=== PATIENT | female | born 1965 | race American Indian/Alaskan Native ===

== ENCOUNTER 2016-10-15 11:00 | Emergency (ER) | payer BC ==
[2016-10-15 11:09] VITALS: BP 152/99
--- NOTE | 2016-10-15 11:36 | Emergency Department Report ---
HPI - General Chief Complaint: Extremity Injury, Lower Time Seen by Provider: 10/15/16 11:24 - HPI HPI: 51-year-old female presents today with left middle finger injury 2 days ago. Patient states that she was walking her dog ran, causing the leash to get stuck to her left middle finger. Tetanus status unknown. Describes her pain as a 4 out of 10 aching, throbbing pain that comes and goes. Denies trying any medication for pain relief. Patient states that she has had colonoscopy scheduled for Wednesday and does not want anything to interfere with that. Denies numbness, weakness, paresthesias. Denies fever, chills, nausea, vomiting, chest pain, shortness of breath, abdominal pain. ED Past Medical Hx - Past Medical History Previous Medical History?: Yes Hx Psychiatric Treatment: (depression) Additional medical history: high cholesterol, hypothyroidism - Surgical History Past Surgical History?: No - Social History Smoking Status: Never Smoker Substance Use Type: Prescribed - Medications Home Medications: Home Medications Medication Instructions Recorded Confirmed Last Taken Type Cyclobenzaprine [Flexeril 10mg] 10 mg PO TID PRN #30 tablet 05/29/14 Unknown Rx Naproxen [Naprosyn TAB] 500 mg PO BID #30 tablet 05/29/14 Unknown Rx HYDROcodone/APAP 5-325 [[place] 1 each PO Q6HR PRN #14 tablet 10/15/16 Unknown Rx 5/325] Ibuprofen [Motrin 800 MG tab] 800 mg PO Q8HR PRN #30 tablet 10/15/16 Unknown Rx ED Review of Systems ROS: Stated complaint: LT HAND MIDDLE FINGER INJURY Other details as noted in HPI Constitutional: denies: chills, fever, malaise Eyes: denies: eye pain ENT: denies: ear pain, throat pain, congestion Respiratory: denies: cough, shortness of breath, wheezing Cardiovascular: denies: chest pain, palpitations Endocrine: no symptoms reported Gastrointestinal: denies: abdominal pain, nausea, vomiting Musculoskeletal: joint swelling, arthralgia Neurological: denies: headache, weakness, numbness, paresthesias Physical Exam - Physical Exam Vital Signs: Vital Signs 10/15/16 11:05 Temperature 98.1 F Pulse Rate 81 Respiratory 18 Rate Blood Pressure 152/99 O2 Sat by Pulse 99 Oximetry Physical Exam: GENERAL: The patient is well-developed and well-nourished. Patient is in NAD. HEAD: Normocephalic. Atraumatic. CHEST/LUNGS: Clear to auscultation throughout. HEART/CARDIOVASCULAR: Regular rate and rhythm. ABDOMEN: Abdomen is soft, nontender. No guarding or rebound tenderness. LEFT FINGER: Limited left middle finger ROM. Tenderness to palpation of DIP joint of left middle finger. Positive for edema and bruising. Peripheral pulses intact. Capillary refill less than 2 seconds. NEURO: Alert and oriented x 3. Normal gait. ED Course Vital Signs 10/15/16 11:05 Temperature 98.1 F Pulse Rate 81 Respiratory 18 Rate Blood Pressure 152/99 O2 Sat by Pulse 99 Oximetry ED Medical Decision Making - Lab Data Vital Signs 10/15/16 11:05 Temperature 98.1 F Pulse Rate 81 Respiratory 18 Rate Blood Pressure 152/99 O2 Sat by Pulse 99 Oximetry - Radiology Data Radiology results: report reviewed LEFT FINGER, 3 VIEWS History: Pain. Findings: An oblique mildly displaced fracture is identified through the middle phalanx of the third digit. No calcified callus is identified. The remaining bony structures and joint spaces of the left hand are within normal limits. Impression: Traumatic fracture, middle phalanx, third digit. - Medical Decision Making 51-year-old female presents today with left middle finger pain post injury. Her x-ray results reveal atraumatic fracture of middle phalanx third digit. Patient's finger has been put in a splint. Referral for orthopedic has been provided. Patient is in no acute distress at this time. She will be discharged home and is encouraged to follow up with a primary care provider. She will be sent home on [place] and ibuprofen and is encouraged to return to the emergency room for any worsening symptoms. Critical care attestation.: If time is entered above; I have spent that time in minutes in the direct care of this critically ill patient, excluding procedure time. ED Disposition Clinical Impression: Fracture of middle phalanx of finger Qualifiers: Encounter type: initial encounter Finger: middle finger Fracture type: closed Fracture alignment: displaced Laterality: left Qualified Code(s): S62.623A - Displaced fracture of medial phalanx of left middle finger, initial encounter for closed fracture Disposition: DISCHARGED TO HOME OR SELFCARE Is pt being admited?: No Does the pt Need Aspirin: No Condition: Stable Instructions: Finger Fracture (ED) Additional Instructions: Follow up with orthopedic. Return to the emergency department if symptoms worsen. Prescriptions: Ibuprofen [Motrin 800 MG tab] 800 mg PO Q8HR PRN #30 tablet PRN Reason: Pain HYDROcodone/APAP 5-325 [[place] 5/325] 1 each PO Q6HR PRN #14 tablet PRN Reason: Pain Referrals: PRIMARY CAREMD [Primary Care Provider] - 3-5 Days TRE SPARROW MD [Staff Physician] - 3-5 Days Forms: Work/School Release Form Time of Disposition: 13:27
--- NOTE | 2016-10-15 12:49 | XRay Report ---
LEFT FINGER, 3 VIEWS History: Pain. Findings: An oblique mildly displaced fracture is identified through the middle phalanx of the third digit. No calcified callus is identified. The remaining bony structures and joint spaces of the left hand are within normal limits. Impression: Traumatic fracture, middle phalanx, third digit.
[2016-10-15] MEDS ORDERED: BOOSTRIX IM ONE (15:13)
== END 2016-10-15 14:06 | disposition home or self-care (01) ==
LOC: ED 11:00
DX: S62.623A Displaced fracture of middle phalanx of left middle finger, initial encounter for closed fracture (principal); E78.00 Pure hypercholesterolemia, unspecified; E03.9 Hypothyroidism, unspecified; F32.9 Major depressive disorder, single episode, unspecified; X58.XXXA Exposure to other specified factors, initial encounter; Y93.9 Activity, unspecified; Y92.89 Other specified places as the place of occurrence of the external cause; Y99.9 Unspecified external cause status
CPT/HCPCS: 90471; 90715